=== PATIENT | male | born 1980 | race Caucasian/White ===

== ENCOUNTER 2017-08-06 17:57 | Emergency (ER) | payer BC, SELFPAY ==
[2017-08-06] MEDS ORDERED: Ketorolac Tromethamine 30 MG/ML VIAL ONE (19:14)
[2017-08-06] MEDS ORDERED: traMADol HCl 50 MG TAB ONE (19:58)
--- NOTE | 2017-08-06 20:19 | RAD ---
THREE VIEWS LEFT SHOULDER: 08/06/17 HISTORY: Left shoulder pain. FINDINGS: No acute fracture is seen. The coracoclavicular distance is within normal limits. There is questiona ble slight elevation of the distal clavicle with respect to the acromion. Minimal left AC joint sepa ration cannot be entirely excluded. No other findings. IMPRESSION: No acute fracture or dislocation involving the left shoulder. However, there is question of slight e levation of the distal left clavicle with respect to the acromion, and minimal AC joint separation c annot be excluded. POS: [facility]
== END 2017-08-06 20:00 | disposition home or self-care (01) ==
LOC: ERS 17:57
DX: M25.512 Pain in left shoulder (principal); F17.220 Nicotine dependence, chewing tobacco, uncomplicated
CPT/HCPCS: 96372; J1885